=== PATIENT | female | born 1965 | race Caucasian/White ===

== ENCOUNTER → 2023-02-15 | Outpatient (CLI) | payer OTHER ==
[2023-02-16 14:29] LABS: Candida species (DNA Probe) Negative (NEGATIVE); G. vaginalis (DNA Probe) Negative (NEGATIVE); T. vaginalis (DNA Probe) Negative (NEGATIVE)
[2023-02-17 23:08] LABS: CHLAMYDIA TRACHOMATIS, NAA Negative (Negative)
== END | disposition home or self-care (01) ==
LOC: LAB SHORT 18:58
PROVIDERS: Physician Assistant
DX: N89.8 Other specified noninflammatory disorders of vagina (principal)
CPT/HCPCS: 87480; 87491; 87510; 87591; 87660

== ENCOUNTER 2023-05-28 18:17 | Emergency (ER) | payer OTHER ==
[~2023-05-28] VITALS: Ht 157.5 cm; Wt 54.4 kg
[2023-05-28 18:50] VITALS: BP 135/93
== END 2023-05-28 21:17 | disposition home or self-care (01) ==
LOC: ER 18:17
DX: M79.645 Pain in left finger(s) (principal); W22.8XXA Striking against or struck by other objects, initial encounter
CPT/HCPCS: 29130; 73140; 99283-25